=== PATIENT | male | born 1990 | race African-American/Black ===

== ENCOUNTER 2017-12-30 21:16 | Emergency (ER) | payer OTHER ==
[2017-12-30 21:22] VITALS: BP 125/66; PULSE 87; RESP 17; TEMP 98.4
[2017-12-30 21:34] LABS: Appearance,Urine Clear (Clear); Bilirubin,Urine Negative (Negative); Blood,Urine Negative (Negative); Color,Urine Yellow; Glucose,Urine (UA) Negative (Negative); Hyaline Casts,Urine 1 /lpf (0-2); Ketones,Urine Negative (Negative); Leukocyte Esterase,Urine Negative (Negative); Mucus,Urine Rare /hpf; Nitrite,Urine Negative (Negative); PH, Urine 5.5 (5.0-8.0); Protein,Urine 2+ (Negative); RBC,Urine <1 /hpf (0-5); Specific Gravity,Urine 1.016 (1.001-1.035); Urobilinogen,Urine <2.0 mg/dL (<2.0); WBC,Urine 3 /hpf (0-5)
[2017-12-30] MEDS ORDERED: AZITHROMYCIN 500 MG TAB PO STA (22:08)
[2017-12-30] MEDS ORDERED: cefTRIAXone 250 MG VIAL IM STA (22:08)
--- NOTE | 2017-12-30 22:11 | ED ---
Male Urogenital HPI - General Chief complaint: Urogenital Stated complaint: check for STDs Time Seen by Provider: 12/30/17 22:05 Source: patient Mode of arrival: ambulatory Limitations: no limitations - History of Present Illness Initial comments: Yusef is a previously healthy 27-year-old male who presents the emergency department for evaluation and treatment after his sexual partner advised him that she has tested positive for chlamydia. Patient reports that he's been having no symptoms, he denies any penile lesions, pain, discharge. He denies any dysuria or difficulty urinating. He denies any history of sexual transmitted infections. He denies any history of HIV. - Related Data Home Medications Medication Instructions Recorded Confirmed No Known Home Medications 12/30/17 12/30/17 Allergies Allergy/AdvReac Type Severity Reaction Status Date / Time No Known Allergies Allergy Verified 12/30/17 21:59 Review of Systems ROS Statement: Those systems with pertinent positive or pertinent negative responses have been documented in the HPI. ROS Other: All systems not noted in ROS Statement are negative. Past Medical History Past Medical History: Asthma History of Any Multi-Drug Resistant Organisms: None Reported Past Surgical History: No Surgical Hx Reported Past Psychological History: No Psychological Hx Reported Smoking Status: Current every day smoker Past Alcohol Use History: None Reported Past Drug Use History: None Reported General Exam - General Exam Comments Initial Comments: Physical Exam GENERAL: Patient is well-developed and well-nourished. Patient is nontoxic and well- hydrated and is in no distress. HENT: Normocephalic, Atraumatic. EYES: PERRL, EOMI PULMONARY: Unlabored respirations. CARDIOVASCULAR: There is a regular rate and rhythm without any murmurs gallops or rubs. ABDOMEN: Soft and nontender with normal bowel sounds. SKIN: Skin is clear with no lesions or rashes and otherwise unremarkable. : Deferred NEUROLOGIC: Patient is alert and oriented x3. Moving all extremities spontaneously MUSCULOSKELETAL: Normal extremities with adequate strength and full range of motion. No lower extremity swelling or edema. No calf tenderness. PSYCHIATRIC: Normal psychiatric evaluation. Limitations: no limitations Limitations: no limitations Course Vital Signs 12/30/17 21:17 Temperature 98.4 F Pulse Rate 87 Respiratory 17 Rate Blood Pressure 125/66 O2 Sat by Pulse 95 Oximetry Medical Decision Making - Medical Decision Making Urinalysis, testing and treatment for gonorrhea and chlamydia were ordered Follow-up was discussed Patient was discharged home The patient was advised follow-up with the health department for HIV testing or return to the ER if he develops any signs or symptoms of sexual transmitted infection. - Lab Data Lab Results 12/30/17 Range/Units 21:22 Urine Color Yellow Urine Appearance Clear (Clear) Urine pH 5.5 (5.0-8.0) Ur Specific [place] 1.016 (1.001-1.035) Urine Protein 2+ H (Negative) Urine Glucose (UA) Negative (Negative) Urine Ketones Negative (Negative) Urine Blood Negative (Negative) Urine Nitrite Negative (Negative) Urine Bilirubin Negative (Negative) Urine Urobilinogen <2.0 (<2.0) mg/dL Ur Leukocyte Esterase Negative (Negative) Urine RBC <1 (0-5) /hpf Urine WBC 3 (0-5) /hpf Hyaline Casts 1 (0-2) /lpf Urine Mucus Rare H (None) /hpf Disposition Clinical Impression: Exposure to STD Disposition: HOME SELF-CARE Condition: Good Instructions: Chlamydia (ED), Gonorrhea (ED), Safe Sex (ED) Is patient prescribed a controlled substance at d/c from ED?: No Referrals: None,Stated [Primary Care Provider] - 1-2 days Time of Disposition: 22:11
[2017-12-31 15:00] LABS: C. trachomatis,PCR Negative (Neg,Equiv); Chlamydia trachomatis Source Urine
[2017-12-31 15:04] LABS: N. gonorrhoeae,PCR Negative (Neg,Equiv); Neisseria Source Urine
== END 2017-12-30 22:45 | disposition home or self-care (01) ==
LOC: EC 21:16
DX: Z20.2 Contact with and (suspected) exposure to infections with a predominantly sexual mode of transmission (principal); F17.200 Nicotine dependence, unspecified, uncomplicated
CPT/HCPCS: 81001; 87491; 87591; 99283; 96372; J0696

== ENCOUNTER 2019-09-21 01:39 | Emergency (ER) | payer OTHER ==
[2019-09-21] MEDS ORDERED: KETOROLAC 30 MG/ML 1 ML VIAL IM STA (02:13)
[2019-09-21] MEDS ORDERED: LIDOCAINE 1% INJ 10MG/ML (20 ML MDV) SQ ONE (02:13)
[2019-09-21] MEDS ORDERED: DIPH,PERTUS(ACELL)TETVAC-LF 0.5 ML VIAL IM ONE (02:40)
[2019-09-21] MEDS ORDERED: ACET/COD 300 MG/30 MG STARTER PACK 6 TAB BTL PO STA (02:56)
[2019-09-21] MEDS ORDERED: PENICILLIN VK 500MG STARTER 4 TAB BTL PO STA (02:57)
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
[2019-09-21 03:19] VITALS: BP 140/90; PULSE 98; RESP 16; TEMP 99.7
== END 2019-09-21 03:19 | disposition home or self-care (01) ==
LOC: EC 01:39
DX: S01.511A Laceration without foreign body of lip, initial encounter (principal); S09.93XA Unspecified injury of face, initial encounter; Z23 Encounter for immunization; Z53.29 Procedure and treatment not carried out because of patient's decision for other reasons; F17.200 Nicotine dependence, unspecified, uncomplicated; W22.8XXA Striking against or struck by other objects, initial encounter
CPT/HCPCS: 90715; 99282; 12011; 90471; 96372; J2001; J1885

== ENCOUNTER 2020-01-03 00:36 | Emergency (ER) | payer OTHER ==
[2020-01-03 00:43] VITALS: BP 151/91; PULSE 66; RESP 18; TEMP 97.8
[2020-01-03] MEDS ORDERED: PROPARACAINE 0.5% OPHTH DROPS 15 ML BTL LEFT EYE STA (00:48)
[2020-01-03] MEDS ORDERED: FLUORESCEIN STRIPS 1 MG STRIP LEFT EYE ONE (00:48)
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
[2020-01-03] MEDS ORDERED: ERYTHROMYCIN 5 MG/GM OPHTH OINT 3.5 GM TUBE BOTH EYES STA (01:30)
== END 2020-01-03 01:49 | disposition home or self-care (01) ==
LOC: EC 00:36
DX: S05.00XA Injury of conjunctiva and corneal abrasion without foreign body, unspecified eye, initial encounter (principal); F17.200 Nicotine dependence, unspecified, uncomplicated; X58.XXXA Exposure to other specified factors, initial encounter
CPT/HCPCS: 99282

== ENCOUNTER 2020-03-16 00:13 | Emergency (ER) | payer OTHER ==
[2020-03-16 00:28] VITALS: BP 154/98; PULSE 79; RESP 18; TEMP 98.3
[2020-03-16] MEDS ORDERED: SODIUM CHLORIDE 0.9% 1,000 ML IV STA (00:34)
--- NOTE | 2020-03-16 00:37 | ED ---
Abdominal Pain HPI - General Chief Complaint: Abdominal Pain Stated Complaint: Constipation Time Seen by Provider: 03/16/20 00:29 Source: patient Mode of arrival: ambulatory Limitations: no limitations - History of Present Illness Initial Comments: 29-year-old male patient presents to the emergency department today for evaluation of abdominal pain and bloating. Patient states his been having issues with constipation over the last couple of weeks. Patient states he did take powder laxative yesterday did have a small bowel movement this morning which did relieve some pressure but states the pressure built back up throughout the day. He denies any nausea or vomiting. States he is able to eat. Denies any fever or chills. Denies history of abdominal surgery. Patient denies any recent rash, fever, chills, cough, shortness of breath, chest pain, back pain, numbness, tingling, dizziness, weakness, hematuria, dysuria, urinary urgency, urinary frequency, headache, visual changes, or any other complaints. - Related Data Previous Rx's Medication Instructions Recorded Ibuprofen [Motrin] 600 mg PO Q8HR PRN #30 tab 09/21/19 Penicillin V Potassium [Pen Vee K] 500 mg PO Q6H #40 tablet 09/21/19 Allergies Allergy/AdvReac Type Severity Reaction Status Date / Time No Known Allergies Allergy Verified 03/16/20 00:28 Review of Systems ROS Statement: Those systems with pertinent positive or pertinent negative responses have been documented in the HPI. ROS Other: All systems not noted in ROS Statement are negative. Past Medical History Past Medical History: Asthma History of Any Multi-Drug Resistant Organisms: None Reported Past Surgical History: No Surgical Hx Reported Past Psychological History: No Psychological Hx Reported Smoking Status: Current every day smoker Past Alcohol Use History: Occasional Past Drug Use History: Marijuana General Exam Limitations: no limitations General appearance: alert, in no apparent distress, other (Physical well- developed, well-nourished adult male patient in no acute distress. Vital signs upon presentation temperature 98.3F, pulse 79, respirations 18, blood pressure 154/98, pulse ox 98% on room air.) Respiratory exam: Present: normal lung sounds bilaterally. Absent: respiratory distress, wheezes, rales, rhonchi, stridor Cardiovascular Exam: Present: regular rate, normal rhythm, normal heart sounds. Absent: systolic murmur, diastolic murmur, rubs, gallop, clicks GI/Abdominal exam: Present: soft, distended, normal bowel sounds. Absent: tenderness, guarding, rebound, rigid Neurological exam: Present: alert, oriented X3, CN II-XII intact Psychiatric exam: Present: normal affect, normal mood Skin exam: Present: warm, dry, intact, normal color. Absent: rash Course Vital Signs 03/16/20 00:24 Temperature 98.3 F Pulse Rate 79 Respiratory 18 Rate Blood Pressure 154/98 O2 Sat by Pulse 98 Oximetry Medical Decision Making - Medical Decision Making 29-year-old male patient presented to the emergency department today with complaints of abdominal pain and bloating. Patient states he hasn't had a good bowel movement for the last 2 weeks. Physical examination did reveal mild generalized abdominal tenderness and distention. Labs reviewed and revealed white blood cell count at 3.0. BUN 21, creatinine 1.57. There was protein in the urine. I did discuss findings and results with the patient. We did discuss his renal function and that he should have this redrawn by his primary care physician and have further evaluation if his numbers do not improve. A primary care physician was recommended to him. He is given a bottle of magnesium citrate to aid with bowel movements. He is instructed to increase fluid, physical activity and fibrous diet. Return parameters were discussed in detail. He verbalizes understanding and agrees with this plan. - Lab Data Result diagrams: 03/16/20 00:50 03/16/20 00:50 Lab Results 03/16/20 03/16/20 03/16/20 Range/Units 00:50 00:50 00:50 WBC 3.0 L (3.8-10.6) k/uL RBC 4.84 (4.30-5.90) m/uL Hgb 16.6 (13.0-17.5) gm/dL Hct 46.1 (39.0-53.0) % MCV 95.3 (80.0-100.0) fL MCH 34.4 (25.0-35.0) pg MCHC 36.1 (31.0-37.0) g/dL RDW 13.3 (11.5-15.5) % Plt Count 214 (150-450) k/uL MPV 7.4 Neutrophils % 44 % Lymphocytes % 38 % Monocytes % 9 % Eosinophils % 5 % Basophils % 1 % Neutrophils # 1.3 (1.3-7.7) k/uL Lymphocytes # 1.1 (1.0-4.8) k/uL Monocytes # 0.3 (0-1.0) k/uL Eosinophils # 0.1 (0-0.7) k/uL Basophils # 0.0 (0-0.2) k/uL Sodium 136 L (137-145) mmol/L Potassium 4.0 (3.5-5.1) mmol/L Chloride 103 (98-107) mmol/L Carbon Dioxide 27 (22-30) mmol/L Anion Gap 6 mmol/L BUN 21 H (9-20) mg/dL Creatinine 1.57 H (0.66-1.25) mg/dL Est GFR (CKD-EPI)AfAm 69 (>60 ml/min/1.73 sqM) Est GFR (CKD-EPI)NonAf 59 (>60 ml/min/1.73 sqM) Glucose 99 (74-99) mg/dL Plasma Lactic Acid [place] 0.7 (0.7-2.0) mmol/L Calcium 9.6 (8.4-10.2) mg/dL Total Bilirubin 0.7 (0.2-1.3) mg/dL AST 59 (17-59) U/L ALT 88 H (4-49) U/L Alkaline Phosphatase 95 (38-126) U/L Total Protein 7.2 (6.3-8.2) g/dL Albumin 4.2 (3.5-5.0) g/dL Lipase 191 (23-300) U/L Urine Color Urine Appearance (Clear) Urine pH (5.0-8.0) Ur Specific [place] (1.001-1.035) Urine Protein (Negative) Urine Glucose (UA) (Negative) Urine Ketones (Negative) Urine Blood (Negative) Urine Nitrite (Negative) Urine Bilirubin (Negative) Urine Urobilinogen (<2.0) mg/dL Ur Leukocyte Esterase (Negative) Urine RBC (0-5) /hpf Urine WBC (0-5) /hpf Urine Mucus (None) /hpf 03/16/20 Range/Units 01:26 WBC (3.8-10.6) k/uL RBC (4.30-5.90) m/uL Hgb (13.0-17.5) gm/dL Hct (39.0-53.0) % MCV (80.0-100.0) fL MCH (25.0-35.0) pg MCHC (31.0-37.0) g/dL RDW (11.5-15.5) % Plt Count (150-450) k/uL MPV Neutrophils % % Lymphocytes % % Monocytes % % Eosinophils % % Basophils % % Neutrophils # (1.3-7.7) k/uL Lymphocytes # (1.0-4.8) k/uL Monocytes # (0-1.0) k/uL Eosinophils # (0-0.7) k/uL Basophils # (0-0.2) k/uL Sodium (137-145) mmol/L Potassium (3.5-5.1) mmol/L Chloride (98-107) mmol/L Carbon Dioxide (22-30) mmol/L Anion Gap mmol/L BUN (9-20) mg/dL Creatinine (0.66-1.25) mg/dL Est GFR (CKD-EPI)AfAm (>60 ml/min/1.73 sqM) Est GFR (CKD-EPI)NonAf (>60 ml/min/1.73 sqM) Glucose (74-99) mg/dL Plasma Lactic Acid [place] (0.7-2.0) mmol/L Calcium (8.4-10.2) mg/dL Total Bilirubin (0.2-1.3) mg/dL AST (17-59) U/L ALT (4-49) U/L Alkaline Phosphatase (38-126) U/L Total Protein (6.3-8.2) g/dL Albumin (3.5-5.0) g/dL Lipase (23-300) U/L Urine Color Yellow Urine Appearance Clear (Clear) Urine pH 6.0 (5.0-8.0) Ur Specific [place] 1.027 (1.001-1.035) Urine Protein 3+ H (Negative) Urine Glucose (UA) Negative (Negative) Urine Ketones Negative (Negative) Urine Blood Trace H (Negative) Urine Nitrite Negative (Negative) Urine Bilirubin Negative (Negative) Urine Urobilinogen 2.0 (<2.0) mg/dL Ur Leukocyte Esterase Negative (Negative) Urine RBC 1 (0-5) /hpf Urine WBC 1 (0-5) /hpf Urine Mucus Rare H (None) /hpf - Radiology Data Radiology results: report reviewed, image reviewed KUB x-ray was obtained. Report is reviewed in its entirety. Impression by Dr. Ruff shows negative abdominal x-rays. Disposition Clinical Impression: Abdominal pain, Renal insufficiency Disposition: HOME SELF-CARE Condition: Good Instructions (If sedation given, give patient instructions): Constipation (ED), Abdominal Pain (ED) Additional Instructions: Drink one half bottle of mag citrate if he has not had a bowel movement in 12 hours drinking other half. Follow-up with the primary care physician for recheck in 1-2 days. Discuss your renal function with them and have repeat renal function labs performed. Return to the emergency department for any new, worsening, or concerning symptoms. Is patient prescribed a controlled substance at d/c from ED?: No Referrals: Salo Meade [STAFF PHYSICIAN] - 1-2 days Time of Disposition: 01:53
[2020-03-16 01:07] LABS: Basophils % (A) 1 %; Eosinophils # (A) 0.1 k/uL (0-0.7); Eosinophils % (A) 5 %; HCT 46.1 % (39.0-53.0); HGB 16.6 gm/dL (13.0-17.5); Lymphocytes # (A) 1.1 k/uL (1.0-4.8); Lymphocytes % (A) 38 %; MCH 34.4 pg (25.0-35.0); MCHC 36.1 g/dL (31.0-37.0); MCV 95.3 fL (80.0-100.0); Mean Platelet Volume 7.4; Monocytes # (A) 0.3 k/uL (0-1.0); Monocytes % (A) 9 %; Neutrophils # (A) 1.3 k/uL (1.3-7.7); Neutrophils % (A) 44 %; Platelet Count 214 k/uL (150-450); RBC 4.84 m/uL (4.30-5.90); RDW 13.3 % (11.5-15.5)
--- NOTE | 2020-03-16 01:18 | XR ---
EXAM: XR Abdomen, 2 Views CLINICAL HISTORY: Abdominal pain. TECHNIQUE: Frontal view of the abdomen/pelvis with upright view of the abdomen. COMPARISON: No relevant prior studies available. FINDINGS: No evidence of small bowel obstruction or free intraperitoneal air. No organomegaly or abnormal mass-effect. No pathologic calcifications. No acute abnormalities noted of the bones. IMPRESSION: Negative abdominal x-rays.
[2020-03-16 01:19] LABS: Albumin 4.2 g/dL (3.5-5.0); Calcium 9.6 mg/dL (8.4-10.2); Total Bilirubin 0.7 mg/dL (0.2-1.3); Total Protein 7.2 g/dL (6.3-8.2)
[2020-03-16 01:33] LABS: Appearance,Urine Clear (Clear); Bilirubin,Urine Negative (Negative); Blood,Urine Trace (Negative); Color,Urine Yellow; Glucose,Urine (UA) Negative (Negative); Ketones,Urine Negative (Negative); Leukocyte Esterase,Urine Negative (Negative); Mucus,Urine Rare /hpf; Nitrite,Urine Negative (Negative); Protein,Urine 3+ (Negative); RBC,Urine 1 /hpf (0-5); Specific Gravity,Urine 1.027 (1.001-1.035); WBC,Urine 1 /hpf (0-5)
[2020-03-16] MEDS ORDERED: MAGNESIUM CITRATE 296 ML BOTTLE PO ONE (01:52)
== END 2020-03-16 02:07 | disposition home or self-care (01) ==
LOC: EC 00:13
DX: N28.9 Disorder of kidney and ureter, unspecified (principal); R14.0 Abdominal distension (gaseous); R10.9 Unspecified abdominal pain; R10.817 Generalized abdominal tenderness; F17.200 Nicotine dependence, unspecified, uncomplicated
CPT/HCPCS: 36415; 74018; 80053; 81001; 83605; 83690; 85025; 96360; 99284

== ENCOUNTER 2022-03-21 16:00 | Emergency (ER) | payer OTHER ==
[2022-03-21 16:06] VITALS: BP 158/82; PULSE 100; RESP 20; TEMP 98
--- NOTE | 2022-03-21 17:27 | ED ---
Abdominal Pain HPI - General Source: patient Mode of arrival: ambulatory Limitations: no limitations <Marly Alejandro - Last Filed: 03/21/22 17:30> - General Source: RN notes reviewed <Ira Langford - Last Filed: 03/21/22 20:31> - General Chief Complaint: Abdominal Pain Stated Complaint: Back/abd pain - History of Present Illness Initial Comments: Patient is a 31-year-old male who presents to the emergency department with a chief complaint abdominal pain. Pain started this morning when patient woke up. Describes as generalized cramping and bloating with radiation to his lower back. He denies injury to his back. Patient also reports nausea, headache, chills, dry cough. Denies other URI symptoms, vomiting, diarrhea, blood in stool, burning with urination, trouble urinating, blood in urine. No history of abdominal surgery. Last bowel movement this morning, nonbloody. Patient does admit to drinking a pint of liquor last night. States he typically drinks twice a month which usually includes liquor. Denies past and present use of tobacco. Admits to daily marijuana use. (Marly Alejandro) - Related Data Home Medications Medication Instructions Recorded Confirmed No Known Home Medications 03/21/22 03/21/22 Allergies Allergy/AdvReac Type Severity Reaction Status Date / Time No Known Allergies Allergy Verified 03/21/22 20:15 Review of Systems ROS Other: All systems not noted in ROS Statement are negative. <Marly Alejandro - Last Filed: 03/21/22 17:30> ROS Other: All systems not noted in ROS Statement are negative. <Ira Langford - Last Filed: 03/21/22 20:31> ROS Statement: Those systems with pertinent positive or pertinent negative responses have been documented in the HPI. Past Medical History Past Medical History: Asthma History of Any Multi-Drug Resistant Organisms: None Reported Past Surgical History: No Surgical Hx Reported Past Psychological History: No Psychological Hx Reported Smoking Status: Current every day smoker Past Alcohol Use History: Occasional Past Drug Use History: Marijuana <Marly Alejandro - Last Filed: 03/21/22 17:30> General Exam Limitations: no limitations <Marly Alejandro - Last Filed: 03/21/22 17:30> General appearance: alert, in no apparent distress Head exam: Present: atraumatic, normocephalic, normal inspection Eye exam: Present: normal appearance, PERRL, EOMI. Absent: scleral icterus, conjunctival injection, periorbital swelling ENT exam: Present: normal exam, mucous membranes moist Neck exam: Present: normal inspection Respiratory exam: Present: normal lung sounds bilaterally. Absent: respiratory distress, wheezes, rales, rhonchi, stridor Cardiovascular Exam: Present: regular rate, normal rhythm, normal heart sounds. Absent: systolic murmur, diastolic murmur, rubs, gallop, clicks GI/Abdominal exam: Present: soft, normal bowel sounds. Absent: distended, tenderness, guarding, rebound, rigid Extremities exam: Present: normal inspection, full ROM, normal capillary refill. Absent: tenderness, pedal edema, joint swelling, calf tenderness Back exam: Present: normal inspection Neurological exam: Present: alert, oriented X3, CN II-XII intact Psychiatric exam: Present: normal affect, normal mood Skin exam: Present: warm, dry, intact, normal color. Absent: rash <Ira Langford - Last Filed: 03/21/22 20:31> Course <Ira Langford - Last Filed: 03/21/22 20:31> Vital Signs 03/21/22 16:03 Temperature 98 F Pulse Rate 100 Respiratory 20 Rate Blood Pressure 158/82 O2 Sat by Pulse 100 Oximetry - Reevaluation(s) Reevaluation #1: I reviewed the above note and assumed care of the patient upon room placement i n the main emergency department. I discussed the results with the patient, all questions were addressed. Patient agreeable with plan for discharge. 03/21/22 20:26 (Ira Langford) Medical Decision Making - Lab Data Result diagrams: 03/21/22 18:32 03/21/22 18:32 <Ira Langford - Last Filed: 03/21/22 20:31> - Medical Decision Making Was pt. sent in by a medical professional or institution? @ -Self Did you speak to anyone other than the patient for history? @ -patient Did you review nursing and triage notes? @ -Yes, triage notes reviewed and agree Were old charts reviewed? @ -No Differential Diagnosis? @ -SBO, COVID, nausea and vomiting EKG interpreted by me (3pts min.)? @ -[none] X-rays interpreted by me (1pt min.)? @ no evidence of abdominal process CT interpreted by me (1pt min.)? @ -[none] U/S interpreted by me (1pt. min.)? @ -[none] What testing was considered but not performed? (CT, X-rays, U/S, labs)? Why? @ [CT, X-rays, U/S, labs? Why?] What meds were considered but not given? Why? @ -Pt vital signs stable and remains a-febrile while in the ED Did you discuss the management of the patient with other professionals? @ -I discussed the case with Dr. Pleitez who agrees with the plan for discharge Did you reconcile home meds? @ -[none] Was smoking cessation discussed for >3mins.? @ -[none] Was critical care preformed (if so, how long)? @ -[none] Were there social determinants of health that impacted care today? How? (Shari elessness, low income, unemployed, alcoholism, drug addiction, transportation, low edu. Level, literacy, decrease access to med. care, usp, rehab)? @ -NA Was there de-escalation of care discussed even if they declined? (Discuss DNR or withdrawal of care, Hospice)? @ -NA What co-morbidities impacted this encounter? (DM, HTN, Smoking, COPD, CAD, Cancer, CVA, Hep., AIDS, mental health diagnosis, sleep apnea, morbid obesity)? @ -NA Was patient admitted / discharged? @ -discharged in stable condition Undiagnosed new problem with uncertain prognosis? @ -NO Drug Therapy requiring intensive monitoring for toxicity (Heparin, Nitro, Insulin, Cardizem)? @ -NA Were any procedures done? @ -NA Diagnosis/symptom? @ -COVID19 Acute, or Chronic, or Acute on Chronic? @ -acute Uncomplicated (without systemic symptoms) or Complicated (systemic symptoms)? @ -uncomplicated Side effects of treatment? @ -NA Exacerbation, Progression, or Severe Exacerbation] @ -NA Poses a threat to life or bodily function? @ -low likelihood (Ira Langford) - Lab Data Lab Results 03/21/22 03/21/22 03/21/22 Range/Units 18:32 18:32 18:32 WBC 8.1 (3.8-10.6) k/uL RBC 5.06 (4.30-5.90) m/uL Hgb 16.8 (13.0-17.5) gm/dL Hct 47.7 (39.0-53.0) % MCV 94.2 (80.0-100.0) fL MCH 33.2 (25.0-35.0) pg MCHC 35.3 (31.0-37.0) g/dL RDW 12.8 (11.5-15.5) % Plt Count 231 (150-450) k/uL MPV 8.1 Neutrophils % 83 % Lymphocytes % 4 % Monocytes % 8 % Eosinophils % 2 % Basophils % 2 % Neutrophils # 6.8 (1.3-7.7) k/uL Lymphocytes # 0.3 L (1.0-4.8) k/uL Monocytes # 0.7 (0-1.0) k/uL Eosinophils # 0.2 (0-0.7) k/uL Basophils # 0.1 (0-0.2) k/uL Sodium 139 (137-145) mmol/L Potassium 3.8 (3.5-5.1) mmol/L Chloride 105 (98-107) mmol/L Carbon Dioxide 24 (22-30) mmol/L Anion Gap 10 mmol/L BUN 12 (9-20) mg/dL Creatinine 1.50 H (0.66-1.25) mg/dL Est GFR (CKD-EPI)AfAm 72 (>60 ml/min/1.73 sqM) Est GFR (CKD-EPI)NonAf 62 (>60 ml/min/1.73 sqM) Glucose 141 H (74-99) mg/dL Plasma Lactic Acid [place] 1.3 (0.7-2.0) mmol/L Calcium 9.9 (8.4-10.2) mg/dL Total Bilirubin 0.9 (0.2-1.3) mg/dL AST 31 (17-59) U/L ALT 58 H (4-49) U/L Alkaline Phosphatase 87 (38-126) U/L Total Protein 8.1 (6.3-8.2) g/dL Albumin 4.9 (3.5-5.0) g/dL Lipase 123 (23-300) U/L Coronavirus (PCR) (Not Detectd) Influenza Type A RNA (Not Detectd) Influenza Type B (PCR) (Not Detectd) 03/21/22 03/21/22 Range/Units 18:32 18:32 WBC (3.8-10.6) k/uL RBC (4.30-5.90) m/uL Hgb (13.0-17.5) gm/dL Hct (39.0-53.0) % MCV (80.0-100.0) fL MCH (25.0-35.0) pg MCHC (31.0-37.0) g/dL RDW (11.5-15.5) % Plt Count (150-450) k/uL MPV Neutrophils % % Lymphocytes % % Monocytes % % Eosinophils % % Basophils % % Neutrophils # (1.3-7.7) k/uL Lymphocytes # (1.0-4.8) k/uL Monocytes # (0-1.0) k/uL Eosinophils # (0-0.7) k/uL Basophils # (0-0.2) k/uL Sodium (137-145) mmol/L Potassium (3.5-5.1) mmol/L Chloride (98-107) mmol/L Carbon Dioxide (22-30) mmol/L Anion Gap mmol/L BUN (9-20) mg/dL Creatinine (0.66-1.25) mg/dL Est GFR (CKD-EPI)AfAm (>60 ml/min/1.73 sqM) Est GFR (CKD-EPI)NonAf (>60 ml/min/1.73 sqM) Glucose (74-99) mg/dL Plasma Lactic Acid [place] (0.7-2.0) mmol/L Calcium (8.4-10.2) mg/dL Total Bilirubin (0.2-1.3) mg/dL AST (17-59) U/L ALT (4-49) U/L Alkaline Phosphatase (38-126) U/L Total Protein (6.3-8.2) g/dL Albumin (3.5-5.0) g/dL Lipase (23-300) U/L Coronavirus (PCR) Detected A (Not Detectd) Influenza Type A RNA Not Detected (Not Detectd) Influenza Type B (PCR) Not Detected (Not Detectd) Disposition <Marly Alejandro - Last Filed: 03/21/22 17:30> Is patient prescribed a controlled substance at d/c from ED?: No Time of Disposition: 20:21 <Ira Langford - Last Filed: 03/21/22 20:31> Clinical Impression: COVID-19 Disposition: HOME SELF-CARE Condition: Stable Additional Instructions: Please return to the nearest emergency department if symptoms worsen or persist. Referrals: None,Stated [Primary Care Provider] - 1-2 days
[2022-03-21] MEDS ORDERED: ONDANSETRON 4 MG/2 ML VIAL IVP STA (17:30)
[2022-03-21] MEDS ORDERED: SODIUM CHLORIDE 0.9% 1,000 ML IV STA (17:30)
[2022-03-21] MEDS ORDERED: DICYCLOMINE 20 MG TAB PO STA (17:31)
--- NOTE | 2022-03-21 18:29 | XR ---
EXAMINATION TYPE: XR KUB DATE OF EXAM: 03/21/2022 COMPARISON: 03/16/2020 HISTORY: Epigastric pain TECHNIQUE: 2 views Upper FINDINGS: There is no sign of intestinal obstruction or pneumoperitoneum. Fecal pattern is normal. No evidence of a mass. No calcification seen over the kidneys. IMPRESSION: Nonacute abdomen. No change.
[2022-03-21 18:55] LABS: Basophils # (A) 0.1 k/uL (0-0.2); Basophils % (A) 2 %; Eosinophils # (A) 0.2 k/uL (0-0.7); Eosinophils % (A) 2 %; HCT 47.7 % (39.0-53.0); HGB 16.8 gm/dL (13.0-17.5); Lymphocytes # (A) 0.3 k/uL (1.0-4.8); Lymphocytes % (A) 4 %; MCH 33.2 pg (25.0-35.0); MCHC 35.3 g/dL (31.0-37.0); MCV 94.2 fL (80.0-100.0); Mean Platelet Volume 8.1; Monocytes # (A) 0.7 k/uL (0-1.0); Monocytes % (A) 8 %; Neutrophils # (A) 6.8 k/uL (1.3-7.7); Neutrophils % (A) 83 %; Platelet Count 231 k/uL (150-450); RBC 5.06 m/uL (4.30-5.90); RDW 12.8 % (11.5-15.5); WBC 8.1 k/uL (3.8-10.6)
[2022-03-21 19:12] LABS: Albumin 4.9 g/dL (3.5-5.0); Calcium 9.9 mg/dL (8.4-10.2); Potassium 3.8 mmol/L (3.5-5.1); Total Bilirubin 0.9 mg/dL (0.2-1.3); Total Protein 8.1 g/dL (6.3-8.2)
== END 2022-03-21 21:24 | disposition home or self-care (01) ==
LOC: EC 16:00
DX: U07.1 COVID-19 (principal); J45.909 Unspecified asthma, uncomplicated; F17.200 Nicotine dependence, unspecified, uncomplicated; F12.90 Cannabis use, unspecified, uncomplicated
CPT/HCPCS: 36415; 74018; 80053; 83605; 83690; 85025; 87502; 87635; 99284

== ENCOUNTER → 2024-05-25 | Outpatient (CLI) | payer OTHER ==
--- NOTE | 2024-05-25 10:56 | US ---
EXAMINATION TYPE: US kidneys/renal and bladder DATE OF EXAM: 05/25/2024 COMPARISON: KUB radiograph 03/21/2022 CLINICAL INDICATION: Male, 33 years old with history of N18.2 CHRONIC KIDNEY DISEASE, STAGE 2 (MILD); TECHNIQUE: Grayscale imaging of the bilateral kidneys and urinary bladder: FINDINGS: EXAM MEASUREMENTS: Right Kidney: 9.6 x 4.5 x 5.2 cm Left Kidney: 9.8 x 5.2 x 5.5 cm Right Kidney: visualized portions wnl, inferior pole limited by overlying bowel gas Left Kidney: wnl Bladder: wnl Bilateral Jets seen: yes There is no evidence for hydronephrosis at this point in time. No nephrolithiasis is seen. No vik s are identified. Corticomedullary differentiation is maintained bilaterally. No cortical thinning. T he urinary bladder is anechoic. IMPRESSION: No hydronephrosis or nephrolithiasis. [facility], , 05/25/2024 10:53 AM
== END | disposition home or self-care (01) ==
LOC: RADUSWWP 09:59
PROVIDERS: ATTEND Family Medicine
DX: N18.2 Chronic kidney disease, stage 2 (mild) (principal); R86.9 Unspecified abnormal finding in specimens from male genital organs
CPT/HCPCS: 76770